=== PATIENT | female | born 1995 ===

== ENCOUNTER → 2017-04-08 | Outpatient (CLI) | payer BC ==
[2017-04-08 12:31] LABS: Cholesterol 106 mg/dL (< 200); HDL Cholesterol 56 mg/dL (40-59); LDL Cholesterol 57 mg/dL (< 100); Triglycerides 21 mg/dL (< 150)
[2017-04-09 08:11] LABS: HSV 2 IgG Antibody 7.71 index (0.00-0.90)
== END | disposition home or self-care (01) ==
LOC: LAB 10:41
PROVIDERS: ATTEND Specialist
DX: Z20.2 Contact with and (suspected) exposure to infections with a predominantly sexual mode of transmission (principal); R10.9 Unspecified abdominal pain; Z80.3 Family history of malignant neoplasm of breast; Z79.899 Other long term (current) drug therapy
CPT/HCPCS: 36415; 80061; 80074; 83001; 83002; 83525; 84403; 84443; 86592; 86695; 86696; 86703